=== PATIENT | male | born 1960 | race Caucasian/White ===

== ENCOUNTER 2022-07-23 09:14 | Outpatient (CLI) | payer BC, SELFPAY | END 2022-07-23 09:15 | disposition home or self-care (01) | PROVIDERS: PCP Family Medicine; Visit Provider Family Medicine | DX: Z00.00 Encounter for general adult medical examination without abnormal findings (principal); R79.89 Other specified abnormal findings of blood chemistry; Z13.6 Encounter for screening for cardiovascular disorders; Z12.5 Encounter for screening for malignant neoplasm of prostate | CPT/HCPCS: 80048; 80061; 80076; 84153 ==

== ENCOUNTER 2022-11-08 08:01 | Outpatient (CLI) | payer BC, SELFPAY | END 2022-11-08 08:02 | disposition home or self-care (01) | LOC: NFLDREF 11-09 07:48 | PROVIDERS: PCP Family Medicine; Referring Provider Family Medicine; Visit Provider Family Medicine | DX: K20.0 Eosinophilic esophagitis (principal); R79.89 Other specified abnormal findings of blood chemistry; Z80.7 Family history of other malignant neoplasms of lymphoid, hematopoietic and related tissues | CPT/HCPCS: 80061; 80076 ==

== ENCOUNTER 2023-09-09 08:48 | Outpatient (CLI) | payer BC, SELFPAY | END 2023-09-09 08:49 | disposition home or self-care (01) | LOC: NFLDREF 09-10 11:21 | PROVIDERS: PCP Family Medicine; Referring Provider Family Medicine; Visit Provider Family Medicine | DX: Z00.00 Encounter for general adult medical examination without abnormal findings (principal); E78.00 Pure hypercholesterolemia, unspecified; Z13.1 Encounter for screening for diabetes mellitus; Z12.5 Encounter for screening for malignant neoplasm of prostate; Z13.6 Encounter for screening for cardiovascular disorders | CPT/HCPCS: 80053; 80061; G0103 ==

== ENCOUNTER 2024-12-22 10:05 | Outpatient (CLI) | payer BC, SELFPAY | END 2024-12-22 10:06 | disposition home or self-care (01) | LOC: NFLDREF 12-25 09:26 | PROVIDERS: PCP Family Medicine; Referring Provider Family Medicine; Visit Provider Family Medicine | DX: E78.00 Pure hypercholesterolemia, unspecified (principal); Z01.818 Encounter for other preprocedural examination; E10.9 Type 1 diabetes mellitus without complications; K20.0 Eosinophilic esophagitis; K21.9 Gastro-esophageal reflux disease without esophagitis | CPT/HCPCS: 80053; 80061; 82306; 82607; 84270; 84402; 84403; G0103 ==